=== PATIENT | female | born 1985 | race African-American/Black ===

== ENCOUNTER 2019-07-01 10:34 | Emergency (ER) | payer SELFPAY ==
[~2019-07-01] VITALS: Ht 149.9 cm; Wt 82.0 kg
--- NOTE | 2019-07-01 11:31 | PHYS DOC ---
Past Medical History Past Medical History: CHF, Hypertension Past Surgical History: Other Additional Past Surgical Histo: hernia Smoking Status: Never Smoker Alcohol Use: Occasionally Adult General Chief Complaint Chief Complaint: FLU SYMPTOM HPI HPI 33-year-old female presenting the emergency room today with cough congestion and myalgias and fevers at home. She has a history of CHF. She has some shortness of breath but denies any worsening leg swelling. She is not on Lasix. She takes medications for blood pressure and high cholesterol. She's had a few episodes of nonbilious nonbloody emesis. She denies abdominal pain. She denies being . Her cough is nonproductive. Review of systems negative for abdominal pain positive for fevers. Negative for nuchal rigidity. Negative for sore throat. All other review of systems negative. Negative for rashes. ED course: 33-year-old female presenting with flulike symptoms. Influenza testing performed along with blood work and chest x-ray. Workup here is unremarkable. Influenza negative though could be false negative given rapid antigen testing. ProBNP within normal limits. X-ray unremarkable. Given her history of CHF along give her Tamiflu and recommended ibuprofen and Tylenol as needed at home. We will also give her Macrobid for possible UTI.The patient has been examined and was not found to have an emergency medical condition. The patient was then discharged home in stable condition to follow up with their primary care physician over the next 1-2 days. They were to return if their symptoms worsened or if they were concerned for any reason. They were also instructed to return to the emergency department if they were unable to get the recommended and appropriate follow-up. [id number] discharge instructions and return precautions were given. Patient's questions were answered to their satisfaction. Patient is comfortable with plan. Current Medications Current Medications Current Medications Medications (Trade) Dose Ordered Sig/Jeffry Start Time Stop Time Status Last Admin Dose Admin Acetaminophen (Tylenol) 650 mg 1X ONCE 07/01/19 12:15 07/01/19 12:16 DC 07/01/19 12:34 650 MG Allergies Allergies Allergies Coded Allergies Type Severity Reaction Last Updated Verified No Known Drug Allergies 07/01/19 No Physical Exam Physical Exam Constitutional: Well developed, well nourished, no acute distress, non-toxic appearance. HENT: Normocephalic, atraumatic, bilateral external ears normal, oropharynx moist, no oral exudates, nose normal. [] Eyes: PERRLA, EOMI, conjunctiva normal, no discharge. [] Neck: Normal range of motion, no tenderness, supple, no stridor. [] Cardiovascular:Heart rate regular rhythm, no murmur [] Lungs & Thorax: Bilateral breath sounds clear to auscultation , no wheezing or rales Abdomen: Bowel sounds normal, soft, no tenderness, no masses, no pulsatile masses. Negative McBurney's point. Negative Dunaway sign. Skin: Warm, dry, no erythema, no rash. [] Back: No tenderness, no CVA tenderness. [] Extremities: No tenderness, no cyanosis, no clubbing, ROM intact, no edema. Neurologic: Alert and oriented X 3, normal motor function, normal sensory function, no focal deficits noted. [] Psychologic: Affect normal, judgement normal, mood normal. [] Current Patient Data Vital Signs Vital Signs Date Time Temp Pulse Resp B/P (MAP) Pulse Ox O2 Delivery O2 Flow Rate FiO2 07/01/19 11:05 103.1 104 24 128/71 (90) 92 Room Air 103.1 Lab Values Laboratory Tests Test 07/01/19 11:24 07/01/19 11:25 07/01/19 11:31 07/01/19 11:55 Urine Collection Type Void Urine Color Yellow Urine Clarity Clear Urine pH 6.0 Urine Specific [place] 1.025 Urine Protein 30 mg/dL (NEG-TRACE) Urine Glucose (UA) Negative mg/dL (NEG) Urine Ketones (Stick) Negative mg/dL (NEG) Urine Blood Negative (NEG) Urine Nitrite Negative (NEG) Urine Bilirubin Negative (NEG) Urine Urobilinogen Dipstick 1.0 mg/dL (0.2 mg/dL) Urine Leukocyte Esterase Small (NEG) Urine RBC Occ /HPF (0-2) Urine WBC 5-10 /HPF (0-4) Urine Squamous Epithelial Cells Many /LPF Urine Bacteria Few /HPF (0-FEW) Urine Mucus Mod /LPF Influenza Type A Antigen Negative (NEGATIVE) Influenza Type B Antigen Negative (NEGATIVE) POC Urine HCG, Qualitative Hcg negative (Negative) White Blood Count 5.5 x10^3/uL (4.0-11.0) Red Blood Count 4.18 x10^6/uL (3.50-5.40) Hemoglobin 11.7 g/dL (12.0-15.5) L Hematocrit 35.0 % (36.0-47.0) L Mean Corpuscular Volume 84 fL (79-100) Mean Corpuscular Hemoglobin 28 pg (25-35) Mean Corpuscular Hemoglobin Concent 33 g/dL (31-37) Red Cell Distribution Width 15.5 % (11.5-14.5) H Platelet Count 175 x10^3/uL (140-400) Neutrophils (%) (Auto) 83 % (31-73) H Lymphocytes (%) (Auto) 8 % (24-48) L Monocytes (%) (Auto) 8 % (0-9) Eosinophils (%) (Auto) 0 % (0-3) Basophils (%) (Auto) 0 % (0-3) Neutrophils # (Auto) 4.6 x10^3/uL (1.8-7.7) Lymphocytes # (Auto) 0.4 x10^3/uL (1.0-4.8) L Monocytes # (Auto) 0.5 x10^3/uL (0.0-1.1) Eosinophils # (Auto) 0.0 x10^3/uL (0.0-0.7) Basophils # (Auto) 0.0 x10^3/uL (0.0-0.2) Sodium Level 138 mmol/L (136-145) Potassium Level 3.8 mmol/L (3.5-5.1) Chloride Level 101 mmol/L (98-107) Carbon Dioxide Level 25 mmol/L (21-32) Anion Gap 12 (6-14) Blood Urea Nitrogen 14 mg/dL (7-20) Creatinine 1.0 mg/dL (0.6-1.0) Estimated GFR (Cockcroft-Gault) 78.2 BUN/Creatinine Ratio 14 (6-20) Glucose Level 114 mg/dL (70-99) H Calcium Level 8.7 mg/dL (8.5-10.1) Total Bilirubin 0.4 mg/dL (0.2-1.0) Aspartate Amino Transferase (AST) 20 U/L (15-37) Alanine Aminotransferase (ALT) 21 U/L (14-59) Alkaline Phosphatase 51 U/L (46-116) GE-Iwu-R-Type Natriuretic Peptide 60 pg/mL (0-124) Total Protein 7.5 g/dL (6.4-8.2) Albumin 3.6 g/dL (3.4-5.0) Albumin/Globulin Ratio 0.9 (1.0-1.7) L Laboratory Tests 07/01/19 11:55 Laboratory Tests 07/01/19 11:55 EKG EKG [] Radiology/Procedures Radiology/Procedures [] Course & Med Decision Making Course & Med Decision Making Pertinent Labs and Imaging studies reviewed. (See chart for details) [] Dragon Disclaimer Dragon Disclaimer This electronic medical record was generated, in whole or in part, using a voice recognition dictation system. Departure Departure Impression: Primary Impression: Flu-like symptoms Additional Impression: UTI (urinary tract infection) Disposition: HOME, SELF-CARE Condition: STABLE Referrals: NO PCP (PCP) Patient Instructions: Influenza Facts Additional Instructions: Thank you for allowing us to participate in your care today. Return to the emergency department you have any new or worsening symptoms, or if you are concerned for any reason. Return to emergency department if you have any new or concerning symptoms including but not limited to fever, chills, nausea, vomiting, intractable pain, any new rashes, chest pain, shortness of air, uncontrolled bleeding, difficulty breathing, and/or vision loss. Follow up with your primary care physician within 1-2 days. Call your Primary Doctor tomorrow and inform them of your visit today. If you do not have a primary care provider we are happy to provide you with a list of our primary care providers contact information. This condition should be evaluated by your primary care physician and any r ecommended consulting services for continued management within 2 days after discharge. If at any time, you are having difficulty getting into your primary care doctor or a specialist, return to the emergency department. Scripts Nitrofurantoin Monohyd/M-Cryst (MACROBID 100 MG CAPSULE) 100 Mg Capsule 1 CAP PO BID, #10 CAP 0 Refills Prov: NANDINI ANDRADE MD 07/01/19 Oseltamivir Phosphate (TAMIFLU) 75 Mg Capsule 75 MG PO BID for FLU for 5 Days, #10 TAB 0 Refills Prov: NANDINI ANDRADE MD 07/01/19 Problem Qualifiers NANDINI ANDRADE MD Jul 01, 2019 11:31
[2019-07-01 11:40] LABS: BILIRUBIN,URINE NEGATIVE (NEG); CLARITY,URINE CLEAR; COLOR,URINE YELLOW; NITRITE,URINE NEGATIVE (NEG); PROTEIN,URINE 30 mg/dL (NEG-TRACE)
[2019-07-01 11:51] LABS: SQUAMOUS EPITHELIAL CELL,UR MANY /LPF
[2019-07-01 11:53] LABS: BACTERIA,URINE FEW /HPF (0-FEW); RBC,URINE OCC /HPF (0-2)
[2019-07-01 11:59] LABS: INFLUENZA A PATIENT NEGATIVE (NEGATIVE); INFLUENZA B PATIENT NEGATIVE (NEGATIVE)
[2019-07-01 12:02] LABS: BASO % 0 % (0-3); EOS % 0 % (0-3); HEMOGLOBIN 11.7 g/dL (12.0-15.5); LYMPH # 0.4 x10^3/uL (1.0-4.8); LYMPH % 8 % (24-48); MEAN CORPUSCULAR HEMOGLOBIN 28 pg (25-35); MEAN CORPUSCULAR HGB CONC 33 g/dL (31-37); MEAN CORPUSCULAR VOLUME 84 fL (79-100); MONO # 0.5 x10^3/uL (0.0-1.1); MONO % 8 % (0-9); NEUT # 4.6 x10^3/uL (1.8-7.7); NEUT % 83 % (31-73); PLATELET COUNT 175 x10^3/uL (140-400); RED BLOOD COUNT 4.18 x10^6/uL (3.50-5.40); RED CELL DISTRIBUTION WIDTH 15.5 % (11.5-14.5); WHITE BLOOD COUNT 5.5 x10^3/uL (4.0-11.0)
--- NOTE | 2019-07-01 12:09 | RAD ---
CHEST AP ONLY History: Cough Comparison: December 24, 2012 Findings: No consolidation or pleural effusion. Normal heart size. No pneumothorax. Impression: 1. No acute cardiopulmonary process. Electronically signed by: Eugenio Larsen DO (07/01/2019 12:06 PM) [id number]
[2019-07-01 12:11] LABS: CALCIUM 8.7 mg/dL (8.5-10.1); GFR 78.2; POTASSIUM 3.8 mmol/L (3.5-5.1)
[2019-07-01] MEDS ORDERED: ACETAMINOPHEN 325 MG TABLET. PO ONE (12:15)
[2019-07-01 12:17] LABS: ALBUMIN 3.6 g/dL (3.4-5.0); ALBUMIN/GLOBULIN RATIO 0.9 (1.0-1.7); TOTAL BILIRUBIN 0.4 mg/dL (0.2-1.0); TOTAL PROTEIN 7.5 g/dL (6.4-8.2)
[2019-07-01] MEDS ORDERED: OSEL75CA PO (13:06)
[2019-07-01] MEDS ORDERED: NITR100C62 PO (13:06)
[2019-07-01 13:58] VITALS: BP 118/60
== END 2019-07-01 14:00 | disposition home or self-care (01) ==
LOC: ER 10:34
DX: R05 Cough (principal); R09.81 Nasal congestion; M79.10 Myalgia, unspecified site; R50.9 Fever, unspecified; R11.10 Vomiting, unspecified; N39.0 Urinary tract infection, site not specified; I11.0 Hypertensive heart disease with heart failure; I50.9 Heart failure, unspecified; Z98.890 Other specified postprocedural states
CPT/HCPCS: 36415; 71045; 80053; 81001; 81025; 83880; 85025; 87086; 87804; 99284-25